=== PATIENT | female | born 1990 | race Caucasian/White ===

== ENCOUNTER 2024-01-10 13:27 | Emergency (ER) | payer MEDICAID ==
[~2024-01-10] VITALS: Ht 170.2 cm; Wt 59.1 kg
[2024-01-10 13:35] VITALS: TEMP 98.2
[2024-01-10] MEDS ORDERED: NATURAL IRON65 MG PO (13:41)
[2024-01-10] MEDS ORDERED: LR 1,000 ML IV ONE (16:30)
[2024-01-10 17:09] LABS: BASO % 0.3 % (0.0-2.0); EOS # 0.7 K/mm3 (0.0-0.7); EOS % 5.8 % (0.0-4.0); GRAN % 75.8 % (42.2-75.2); HEMATOCRIT 37.3 % (37.0-47.0); HEMOGLOBIN 12.9 g/dl (12.5-16.0); LYMPH # 1.6 K/mm3 (1.2-3.4); LYMPH % 13.2 % (20.0-51.0); MEAN CELL VOLUME 86 fl (80.0-100.0); MEAN CORPUSCULAR HEMOGLOBIN 30 pg (27-31); MEAN CORPUSCULAR HGB CONC 35 g/dl (33.0-37.0); MEAN PLATELET VOLUME 9.1 fl (7.4-10.4); MONO # 0.6 K/mm3 (0.1-0.6); MONO % 4.6 % (1.7-9.3); PLATELET COUNT 279 K/mm3 (130-400); RED BLOOD COUNT 4.34 M/mm3 (4.10-5.30); REDCELL DISTRIBUTION WIDTH-CV 13.4 % (11.5-14.5)
[2024-01-10] MEDS ORDERED: Iohexol 300 - 100 ML VIAL IV ONE (17:20)
[2024-01-10] MEDS ORDERED: NS 100 ML IV SCH (17:22)
[2024-01-10 17:27] LABS: BILIRUBIN,TOTAL 0.2 mg/dL (0.2-1.2); CALCIUM 9.7 mg/dL (8.4-10.2); CREATININE, serum 0.55 mg/dL (0.57-1.11); POTASSIUM 3.7 mEq/L (3.5-4.5); TOTAL PROTEIN 7.3 g/dl (6.2-8.1)
[2024-01-10] MEDS ORDERED: AMOXICILLIN 8751 TAB PO (17:59)
[2024-01-10 18:13] VITALS: BP 104/68; PULSE 83
== END 2024-01-10 18:13 | disposition home or self-care (01) ==
LOC: COL.ER 13:27
PROVIDERS: Family Medicine
DX: O99.512 Diseases of the respiratory system complicating pregnancy, second trimester (principal); J03.90 Acute tonsillitis, unspecified; Z3A.15 15 weeks gestation of pregnancy
CPT/HCPCS: J7120; Q9967